=== PATIENT | male | born 1995 | race Caucasian/White ===

== ENCOUNTER → 2016-11-04 | Outpatient (CLI) | payer OTHER ==
--- NOTE | 2016-11-05 09:53 | REP ---
MRI BRAIN WITHOUT AND WITH CONTRAST: HISTORY: Hearing loss. CONTRAST: ProHance 16 mL. There are no areas of abnormal signal intensity in the brain. There is no intraparenchymal hemorrhage, infarct, mass or midline shift. There is no abnormal enhancement. The ventricular system is normal in appearance. There is no extracerebral collection. There is no cerebellopontine angle mass. The inner ear structures are normal in appearance. The mastoid air cells are clear. Minimal mucosal thickening is present in the maxillary sinuses. IMPRESSION: There is no intracranial lesion. Signed by Rajesh Morgan MD 11/05/2016 10:27 A
== END ==
LOC: M RAD 16:06
DX: H90.41 Sensorineural hearing loss, unilateral, right ear, with unrestricted hearing on the contralateral side (principal)
CPT/HCPCS: 70553; A9576